=== PATIENT | male | born 1955 | race Caucasian/White ===

== ENCOUNTER → 2016-08-27 | Outpatient (CLI) | payer BC ==
--- NOTE | 2016-08-27 22:25 | CONS ---
DATE OF CONSULTATION: This 61-year-old gentleman has been evaluated in the sleep center for obstructive sleep apnea/hypopnea syndrome. HISTORY OF PRESENT ILLNESS/SLEEP-WAKE EVALUATION: Patient was diagnosed with obstructive sleep apnea/hypopnea syndrome in 2006. Since that time he has been on treatment with CPAP. He has continued to use CPAP equipment every night for the whole night. At present his sleep schedule on working days is from around 9 or 10 p.m. to 5 a.m.; on weekends from around 11 or 12 midnight until 10 or 11 a.m. Sometimes he has problems with falling asleep. He may grind his teeth and may have restless leg symptoms. He wakes up from sleep up to 7 times and once with nocturia. No TV in bedroom. He usually sleeps on the side position. No history of hypnagogic hallucinations, sleep paralysis or cataplexy. Patient feels sleepiness during the day. [employer] Sleepiness Scale is 10. Past medical history is positive for: 1. Back pain. 2. Hip problems. 3. Shoulder pain. 4. Sciatic nerve problems. 5. Fibromyalgia. 6. Acid reflux. 7. Hypertension. 8. 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 9. Back injury in 1993. PAST SURGICAL HISTORY: 1. Spinal stimulator insertion for pain in 2011. 2. Surgery on the neck for benign tumor. SOCIAL HISTORY: Positive for smoking about 1 pack a day for 40 years. Alcohol consumption: None. MEDICATIONS: 1. Gabapentin. 2. Percocet. 3. Lisinopril. 4. Cymbalta. 5. Morphine. 6. Cyclobenzaprine. 7. Nexium. 8. Vitamin D supplement. REVIEW OF SYSTEMS: Tiredness and sleepiness during the day, multiple awakenings from sleep. No fevers. No double vision. No recent chest pain. No shortness of breath. No abdominal pain. No bleeding episodes. No blood in urine. No seizure episodes. FAMILY HISTORY: Hypertension, fibromyalgia, cancer, acid reflux, restless legs. PHYSICAL EXAMINATION: GENERAL: A pleasant gentleman without distress. VITAL SIGNS: BP 126/80, HR 80, RR 16. Height 6 feet 0 inches. Weight 284. BMI 38.5. Neck 17-1/2 inches in circumference. Temperature 97.5. Oxygen saturation at room air 97%. HEENT: PERRLA, EOMI. Evaluation of oropharynx showed tongue protrudes midline; moderately low position of soft palate; restriction of nasal breathing bilaterally. NECK: Supple. No JVD. Thyroid is not palpable. LUNGS: Clear to percussion and to auscultation. Good air exchange. No wheezing or rhonchi. HEART: S1, S2 regular. No murmurs, gallops or rubs. ABDOMEN: Obese. EXTREMITIES: No clubbing or cyanosis. GROCERY STORE ASSOCIATE: Awake, alert, and oriented x3. Cranial nerves 2 to 7 intact. There is no fasciculation or atrophy noted. No focal deficits observed. Patient has difficulties with walking secondary to back pain. IMPRESSION: 1. Multiple awakenings from sleep, history of obstructive sleep apnea/hypopnea syndrome, [employer] Sleepiness Scale increased to 10. Patient continues to use his CPAP equipment every night but has symptoms of sleepiness during the day and multiple awakenings from sleep. 2. Back pain. 3. Hip pain. 4. Shoulder pain. 5. Sciatic nerve problem. 6. Status post spinal stimulator insertion. 7. Acid reflux. 8. Hypertension. 9. Fibromyalgia. 10. Status post back injury in 1983. 11. Status post benign tumor removed from the left side of the neck. PLAN: 1. Continue treatment with CPAP every night for the whole night. 2. Repeat CPAP titration for re-evaluation of effective CPAP pressure at the present time. Patient continues to have sleepiness during the day and awakenings from sleep. 3. Continue losing weight. 4. No driving if feeling any sleepiness. Thank you very much for referring this patient for re-evaluation. Sincerely, Manjit Quintero MD, PhD, FAASM. Diplomat of [employer] [place] [employer], Sleep Medicine Board by [employer] [place] [employer] [place] [employer] [place] Station Attendant of [facility] [place]
== END | disposition home or self-care (01) ==
CPT/HCPCS: 99211

== ENCOUNTER → 2016-11-05 | Outpatient (CLI) | payer BC ==
--- NOTE | 2016-11-05 23:37 | PN ---
61-year-old gentleman who has been followed in the sleep center for treatment of obstructive sleep apnea/hypopnea syndrome. Recently we did CPAP titration which showed that CPAP pressure of 12 cm is effective for the patient at the present time. Since that time, patient was started on new CPAP unit. I checked his CPAP unit today, it shows that patient using equipment 30 out of 30 nights for more than 4 hours, which means that 100% time. CPAP pressure is 12 cm of water, humidity at the level of 4. Leak from the mask is up to 20 L/min, which is acceptable. Apnea-hypopnea index reading from the machine is only 0.3 for the last month, which is perfect. [place] Sleepiness Scale today is 8. MEDICATIONS: 1. Gabapentin. 2. Percocet. 3. Lisinopril. 4. Cymbalta. 5. Morphine. 6. Cyclobenzaprine. 7. Nexium. 8. Vitamin D. VITAL SIGNS: BP 122/82, HR 80, RR 16. Weight 280. Temp 100.2. Oxygen saturation at room air 95%. HEENT: PERRLA, EOMI oropharynx low position of soft palate. Neck: Supple. No JVD. Thyroid is not palpable. LUNGS: Clear to percussion and to auscultation. Good air exchange. No wheezing or rhonchi. HEART: S1, S2 regular. No murmurs, gallops, or rubs. ABDOMEN: Obese. Soft and nontender. Bowel sounds are present. No organomegaly appreciated. EXTREMITIES: No clubbing or cyanosis. TECHNICIAN TRAINEE: Awake, alert, and oriented x3. Cranial nerves 2 to 7 intact. There is no fasciculation or atrophy noted. No focal deficits observed. IMPRESSION: 1. Obstructive sleep apnea/hypopnea syndrome on full control with CPAP at 12 cm of water. Patient demonstrated 100% compliance with treatment, benefiting from treatment. 2. Back pain. 3. Hip problems. 4. Shoulder pain. 5. Sciatic nerve problem. 6. Status post spinal stimulator insertion. 7. Hypertension. 8. Acid reflux. 9. Fibromyalgia. 10. Status post neck surgery. 11. Status post benign tumor removed from the left side of the neck. PLAN: 1. Continue treatment with CPAP at the pressure of 12 cm of water every night for the whole night. Patient showed 100% compliance benefiting from treatment. 2. Losing weight. 3. Sleep hygiene with regular time in bed for at least 8 hours. 4. No driving if feels any sleepiness. 5. Prescription for all necessary CPAP supplies. Thank you very much for allowing me to participate in the management your patient. Follow-up visit in ten months. Sincerely, Manjit Quintero MD, PhD, FAASM. Diplomat of [place] [employer], Sleep Medicine Board by [place] [employer] [place] [employer] Assistant Teaching Professor of [facility] [place]
== END | disposition home or self-care (01) ==
LOC: SLEEP 16:10
PROVIDERS: ATTEND Internal Medicine
DX: G47.33 Obstructive sleep apnea (adult) (pediatric) (principal); M54.9 Dorsalgia, unspecified; M25.519 Pain in unspecified shoulder; G58.9 Mononeuropathy, unspecified; Z96.89 Presence of other specified functional implants; I10 Essential (primary) hypertension; K21.9 Gastro-esophageal reflux disease without esophagitis; M79.7 Fibromyalgia; Z98.890 Other specified postprocedural states; Z79.899 Other long term (current) drug therapy

== ENCOUNTER → 2017-03-08 | Outpatient (CLI) | payer BC ==
--- NOTE | 2017-03-08 18:42 | CT ---
EXAMINATION TYPE: CT cervical spine wo con DATE OF EXAM: 03/08/2017 COMPARISON: 03/01/2014 HISTORY: Neck pain and right shoulder pain. Fall injury x3 months ago. CT DLP: 737.1 mGycm Automated exposure control for dose reduction was used. TECHNIQUE: CT scan of the cervical spine is obtained without contrast, axial images are obtained, sa gittal and coronal reformatted images are also reviewed. FINDINGS: Cervical vertebra have normal alignment. Disc spaces are fairly normal. There is anterior h ypertrophic spurring from C4 to C7. There is no compression fracture. The facet joints are intact. Sk ull base is intact. I see no focal bone destruction. IMPRESSION: There are mild spondylotic changes in the lower cervical spine. No fracture. No adverse c hange compared to old exam.
== END | disposition home or self-care (01) ==
LOC: RADCTMAIN 16:19
PROVIDERS: ATTEND Psychiatry & Neurology Neurology
DX: M47.812 Spondylosis without myelopathy or radiculopathy, cervical region (principal)
CPT/HCPCS: 72125

== ENCOUNTER → 2017-08-24 | Outpatient (CLI) | payer BC ==
--- NOTE | 2017-08-24 16:53 | CT ---
EXAMINATION TYPE: CT cervical spine wo con DATE OF EXAM: 08/24/2017 COMPARISON: NONE HISTORY: Neck pain radiating down right arm. CT DLP: 688.9 mGycm Automated exposure control for dose reduction was used. TECHNIQUE: CT scan of the cervical spine is obtained without contrast, axial images are obtained, sa gittal and coronal reformatted images are also reviewed. FINDINGS: Cervical vertebra have normal alignment. There is hypertrophic anterior spurring from C4 to T1. Posterior elements are intact. Skull base is intact. There is a relative spinal stenosis at C4-5 of 78 mm due to posterior endplate spur formation and probable disc herniation. There is similar myla nge at C5-6 and C6-7. IMPRESSION: Multilevel spondylosis. No fracture. No significant change compared to last exam.
== END | disposition home or self-care (01) ==
LOC: RADCTMAIN 16:04
PROVIDERS: ATTEND Psychiatry & Neurology Neurology
DX: M47.812 Spondylosis without myelopathy or radiculopathy, cervical region (principal)
CPT/HCPCS: 72125

== ENCOUNTER → 2017-11-11 | Outpatient (CLI) | payer BC ==
--- NOTE | 2017-11-11 17:07 | SFUN ---
SLEEP STUDY FOLLOW UP NOTE DATE OF SERVICE: 11/11/2017 62-year-old gentleman who has been followed in Sleep Center for treatment of obstructive sleep apnea-hypopnea syndrome. The patient successfully continued to use his CPAP equipment every night for the whole night without significant problems. No snoring with the machine. [place] Sleepiness Scale today is 5. I checked his CPAP unit. The patient used at 363nights/365 nights over the year and 349 nights it was more than 4 hours. Average usage is 7.3 hours. Leak is up to 20 L/minute. Apnea-hypopnea index reading for the whole year is 5.5. No significant changing of the weight since the last visit. MEDICATIONS: Gabapentin, lisinopril, Cymbalta, , Nexium, vitamin D. Presently, patient has pump for the pain inserted in June 2017. PHYSICAL EXAM: GENERAL Patient in no distress. VITAL SIGNS BP 106/68, HR 73, RR 14, height 6 foot 0, weight 279.0, BMI 37.8, temperature 98.1, oxygen saturation on room air 94%. HEENT PERRLA, EOMI, evaluation of oropharynx showed extremely low position of soft palate. NECK Supple, no JVD. Thyroid is not palpable. LUNGS Clear to percussion and to auscultation. Good air exchange. No wheezing or rhonchi. HEART S1, S2 regular. No murmurs, gallops, or rubs. ABDOMEN Obese. Soft and nontender. Bowel sounds are present. No organomegaly appreciated. EXTREMITIES No clubbing or cyanosis. TAX PROFESSIONAL Awake, alert, and oriented X3. Cranial nerves 2 to 7 intact. There is no fasciculation or atrophy. noted. No focal deficits observed. IMPRESSION: 1. Obstructive sleep apnea-hypopnea syndrome, most on control with CPAP with a pressure of 12 cm of water patient demonstrated 100% compliance with treatment, benefitting from treatment. 2. Back pain. 3. Hip problems. 4. Shoulder pain. 5. Sciatic nerve problems. 6. Status post spinal stimulator insertion. 7. Status post pain pump insertion June 2017. 8. Hypertension. 9. Acid reflux. 10.Fibromyalgia. 11.Status post neck surgery. 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 PLAN: 1. Continue treatment with CPAP every night for the whole night. 2. Losing weight. 3. Sleep hygiene with regular time in bed for at least 8 hours. 4. No driving if feeling sleepiness. 5. Prescription for all necessary CPAP supplies including mask, tube, filters. 6. Followup visit in 1 year or earlier if patient has any problems. Thank you very much for allowing me to participate in management of your patient. Sincerely, Manjit Quintero MD, PhD, FAASM Diplomat of [employer] [employer] Neuropsychology Director of [facility] [place] MMODL / IJN: [id number] /
== END | disposition home or self-care (01) ==
LOC: SLEEP 15:38
PROVIDERS: ATTEND Internal Medicine
DX: G47.33 Obstructive sleep apnea (adult) (pediatric) (principal); I10 Essential (primary) hypertension; K21.9 Gastro-esophageal reflux disease without esophagitis; M79.7 Fibromyalgia; M54.9 Dorsalgia, unspecified; M25.519 Pain in unspecified shoulder; Z98.890 Other specified postprocedural states; Z97.8 Presence of other specified devices; Z79.899 Other long term (current) drug therapy

== ENCOUNTER → 2018-08-03 | Outpatient (CLI) | payer BC | LOC: RADCTMAIN 16:15 | PROVIDERS: ATTEND Psychiatry & Neurology Neurology | DX: Z53.9 Procedure and treatment not carried out, unspecified reason (principal) ==

== ENCOUNTER → 2018-08-05 | Outpatient (CLI) | payer BC ==
--- NOTE | 2018-08-05 16:30 | CT ---
EXAMINATION TYPE: CT cervical spine wo con DATE OF EXAM: 08/05/2018 COMPARISON: CT cervical spine August 24, 2017. HISTORY: Patient has been having neck pain since cholecystectomy [address] DLP: 768 mGycm. Automated Exposure Control for Dose Reduction was Utilized. TECHNIQUE: CT scan of the cervical spine is obtained without contrast, axial images are obtained, sa gittal and coronal reformatted images are also reviewed. FINDINGS: Cervical spine is visualized in its entirety from C1 through upper thoracic levels, demonst rates satisfactory alignment without evidence of acute fracture or dislocation. Prevertebral soft ti ssue appears within normal limits. The C1-C2 articulation is within normal limits on the coronal keerthi ges. Vertebral body heights are maintained. There is mild disc space narrowing mid to lower cervical level s with moderate multilevel anterior spurring redemonstrated. Exam noted suboptimal due to patient's l arge body habitus. No new large posterior disc herniations are clearly present. Review of axial images redemonstrates posterior spur disc complex and uncovertebral facet degenerativ e changes with some effacement of the anterior thecal sac and asymmetric mild to moderate left greate r than right bilateral neural foraminal narrowing at C4-C5 level. Thyroid gland is felt within normal limits. Lung apices are clear. IMPRESSION: There is no acute fracture or dislocation evident in the cervical spine. Suboptimal stud y due to patient's body habitus. No significant change from prior CT. MRI is more sensitive to assess disc herniation and spinal canal effacement.
== END ==
LOC: RADCTMAIN 15:37
PROVIDERS: ATTEND Psychiatry & Neurology Pain Medicine
DX: M54.2 Cervicalgia (principal)
CPT/HCPCS: 72125

== ENCOUNTER → 2019-03-24 | Outpatient (CLI) | payer BC ==
[2019-03-24 14:03] LABS: Basophils # (A) 0.1 k/uL (0-0.2); Basophils % (A) 1 %; Eosinophils # (A) 0.2 k/uL (0-0.7); Eosinophils % (A) 2 %; HCT 45.6 % (39.0-53.0); HGB 15.4 gm/dL (13.0-17.5); Lymphocytes # (A) 3.8 k/uL (1.0-4.8); Lymphocytes % (A) 43 %; MCH 30.7 pg (25.0-35.0); MCHC 33.7 g/dL (31.0-37.0); MCV 91.3 fL (80.0-100.0); Mean Platelet Volume 6.6; Monocytes # (A) 0.7 k/uL (0-1.0); Monocytes % (A) 8 %; Neutrophils % (A) 44 %; Platelet Count 218 k/uL (150-450); RDW 12.9 % (11.5-15.5); WBC 8.9 k/uL (3.8-10.6)
[2019-03-24 19:00] LABS: African American GFR (CKD) 93.1 (60.0-200.0); Albumin 4.7 g/dL (3.80-4.90); Albumin/Globulin Ratio 2.47 (1.60-3.17); Anion Gap 6.7 mmol/L (4.00-12.00); Calcium 9.9 mg/dL (8.7-10.3); Carbon Dioxide 28.3 mmol/L (21.6-31.8); Globulin 1.9 g/dL (1.6-3.3); Potassium 4.5 mmol/L (3.5-5.5); Total Bilirubin 0.8 mg/dL (0.3-1.2); Total Protein 6.6 g/dL (6.2-8.2)
== END | disposition home or self-care (01) ==
LOC: LABWHC1 13:17
PROVIDERS: ATTEND Internal Medicine
DX: R11.2 Nausea with vomiting, unspecified (principal)
CPT/HCPCS: 36415; 80053; 82150; 83690; 83735; 85025

== ENCOUNTER → 2019-06-22 | Outpatient (CLI) | payer BC ==
[2019-06-22 14:24] LABS: INR 0.9 (<1.2); Prothrombin Time 9.6 sec (9.0-12.0)
[2019-06-22 14:41] LABS: HCT 45.2 % (39.0-53.0); HGB 15.7 gm/dL (13.0-17.5); MCH 32.2 pg (25.0-35.0); MCHC 34.8 g/dL (31.0-37.0); MCV 92.6 fL (80.0-100.0); Mean Platelet Volume 5.7; Platelet Count 246 k/uL (150-450); RBC 4.88 m/uL (4.30-5.90); RDW 12.4 % (11.5-15.5); WBC 7.1 k/uL (3.8-10.6)
[2019-06-22 20:26] LABS: % Iron Saturation 29.68 (15.00-50.00); Albumin 4.8 g/dL (3.80-4.90); Albumin/Globulin Ratio 2.4 (1.60-3.17); Bilirubin, Conjugated 0.3 mg/dL (0.20-0.40); Bilirubin,Unconjugated 0.8 mg/dL; Total Bilirubin 1.1 mg/dL (0.2-1.2); Total Protein 6.8 g/dL (6.2-8.2)
[2019-06-22 20:53] LABS: Hepatitis A Antibody IgM Non-Reactive (Non-Reactive); Hepatitis B Core IgM Non-Reactive (Non-Reactive); Hepatitis B Surface Antigen Non-Reactive (Non-Reactive); Hepatitis C IgG Antibody Non-Reactive (Non-Reactive)
[2019-06-23 11:56] LABS: Ceruloplasmin 25.3 mg/dL (20.0-60.0)
[2019-06-23 12:23] LABS: ANA Pattern Speckled
== END | disposition home or self-care (01) ==
LOC: LABWHC1 12:47
PROVIDERS: ATTEND Physician Assistant
DX: R94.5 Abnormal results of liver function studies (principal)
CPT/HCPCS: 36415; 80074; 80076; 82103; 82390; 83516; 83540; 83550; 85027; 85610; 86038; 86039

== ENCOUNTER → 2019-12-27 | Outpatient (CLI) | payer BC ==
[2019-12-27 18:39] LABS: Albumin 4.5 g/dL (3.80-4.90); Albumin/Globulin Ratio 2.25 (1.60-3.17); Bilirubin, Conjugated 0.3 mg/dL (0.20-0.40); Bilirubin,Unconjugated 0.5 mg/dL; Total Bilirubin 0.8 mg/dL (0.2-1.2); Total Protein 6.5 g/dL (6.2-8.2)
== END | disposition home or self-care (01) ==
LOC: LABWHC1 11:40
PROVIDERS: ATTEND Physician Assistant
DX: K76.0 Fatty (change of) liver, not elsewhere classified (principal)
CPT/HCPCS: 36415; 80076

== ENCOUNTER → 2020-09-04 | Outpatient (CLI) | payer BC ==
--- NOTE | 2020-09-04 20:22 | SFUN ---
SLEEP CENTER FOLLOW UP NOTE DATE OF SERVICE: 09/04/2020 This is a 65-year-old gentleman who has been followed in Sleep Center for treatment of obstructive sleep apnea-hypopnea syndrome. I did not see the patient for a little bit less than 3 years. During the previous visit, the patient used the machine on a regular basis and his apnea-hypopnea index reading from the machine was totally normal. It was 5.5. The patient continues to use his equipment every night and does not complain of any problems related to sleep or mask fitting. [place] Sleepiness Scale today is 7. I checked his CPAP machine. Pressure is 12 cm of water. Usage is 30/30 nights for more than 4 hours; average 7 hours per night. Leak is 38 L/minute, which is high. Apnea- hypopnea index reading for the last month is 50.3, which is extremely high. The patient's weight increased by around 20 pounds since his previous visit. The machine does not have options for automatic regulation of the pressure. MEDICATIONS: Gabapentin, lisinopril, Cymbalta, Nexium. PHYSICAL EXAMINATION: GENERAL: A pleasant patient in no distress. VITAL SIGNS: BP 108/74, HR 90, RR 12. Height 6 feet 1-1/4 inches, weight 301.4 pounds, temperature 98.5, oxygen saturation at room air 96%. HEENT: PERRLA, EOMI. Evaluation of oropharynx showed tongue protrudes midline. Extremely low position of soft palate. NECK: Supple. No JVD. Thyroid is not palpable. LUNGS: Clear to percussion and to auscultation. Good air exchange. No wheezing or rhonchi. HEART: S1, S2 regular. No murmurs, gallops or rubs. ABDOMEN: Obese. EXTREMITIES: No clubbing or cyanosis. WATCH ELECTRICIAN: Awake, alert, and oriented X3. Cranial nerves 2 to 7 intact. There is no fasciculation or atrophy. noted. No focal deficits observed. IMPRESSION: 1. Obstructive sleep apnea-hypopnea syndrome. Patient demonstrated good compliance with treatment but extremely high apnea-hypopnea index reading from the machine. 2. Obesity. Patient's weight increased by around 20 pounds since previous visit. 3. Back problems. 4. Hip problems. 5. Shoulder problems. 6. Sciatic nerve problems. 7. Status post spinal stimulator insertion. 8. Status post pain pump insertion. 9. Hypertension. 10.Acid reflux. 11.Fibromyalgia. 12.Status post neck surgery. 13.Status post benign tumor removed from the neck. PLAN: 1. I changed CPAP pressure from 12 to 15 cm of water. 2. I adjusted RAMP starting from 8 cm of water to the recommended pressure for 15 minutes. 3. Patient will continue to use PAP equipment every night for the whole night. 4. Sleep hygiene with regular time in bed for at least 7-1/2 to 8 hours. 5. Precautions related to driving. No driving if feeling sleepiness. 6. I will maintain all necessary prescription for PAP supplies including mask, tube, filters. 7. Watching weight. 8. No driving if feeling sleepiness. 9. Follow-up visit in 1-2 months or earlier if patient has any problems. Thank you very much for allowing me to participate in the management of your patient. Sincerely, Manjit Quintero MD, PhD, FAASM Diplomat of [employer] [employer] [employer] Livestock Rancher of [facility] [place] MMODL / BUFFYN: [id number] /
== END | disposition home or self-care (01) ==
LOC: SLEEP 14:33
PROVIDERS: ATTEND Internal Medicine
DX: G47.33 Obstructive sleep apnea (adult) (pediatric) (principal); E66.9 Obesity, unspecified; I10 Essential (primary) hypertension; K21.9 Gastro-esophageal reflux disease without esophagitis; M79.7 Fibromyalgia; M25.9 Joint disorder, unspecified; G57.00 Lesion of sciatic nerve, unspecified lower limb; Z99.89 Dependence on other enabling machines and devices; Z79.899 Other long term (current) drug therapy; Z98.890 Other specified postprocedural states

== ENCOUNTER → 2020-10-31 | Outpatient (CLI) | payer BC ==
--- NOTE | 2020-10-31 14:39 | SFUN ---
SLEEP CENTER FOLLOW UP NOTE DATE OF SERVICE: 10/31/2020 This 65-year-old gentleman had been followed in Sleep Center for treatment of obstructive sleep apnea-hypopnea syndrome. During the previous visit in August of 2020, apnea-hypopnea index was increased to 50.3 with the leaks 38 L/minute, and I changed the pressure in the CPAP unit empirically from 12 cm of water to 15 cm of water. Patient continues to use his CPAP equipment every night, tried different nasal pillow masks. Has sometimes awakenings from sleep. [place] Sleepiness Scale is 6. I checked his CPAP unit. CPAP pressure 15 cm of water. Usage is 30 out of 30 nights for more than 4 hours with average usage 7.1 hours per night. Leak is 53 L/minute, which is high. Apnea-hypopnea index is in extremely high range 56.8. During the last 2 weeks before visit. The patient used nasal pillow mask with chinstrap, and at that nights he used it every night again and averaged 6.8 hours per night. Leak was less 32 L/minute, but still high/ apnea-hypopnea index still in very high range 48.5. MEDICATIONS: Percocet 7.5/325, lisinopril 2.5 mg once a day, Cymbalta 60 mg once a day, Flexeril 10 mg, morphine by pain pump, Qvar 80 mcg 2 puffs, famotidine 20 mg, fluticasone 50 mcg 2 sprays to each nostril. PHYSICAL EXAMINATION: GENERAL: Patient in no distress. VITAL SIGNS: BP 138/82, HR 98, RR 18, height 6 feet 1 inch, weight 295, temperature 93.1, oxygen saturation at room air 96%. BMI 38.9. HEENT: PERRLA, EOMI. Oropharynx extremely low position of soft palate. Mallampati 4. NECK: Supple, no JVD. Thyroid is not palpable. LUNGS: Clear to percussion and to auscultation. Good air exchange. No wheezing or rhonchi. HEART: S1, S2 regular. No murmurs, gallops, or rubs. ABDOMEN: Obese. EXTREMITIES: No clubbing or cyanosis. SHIFT MANAGER: Awake, alert, and oriented X3. Cranial nerves 2 to 7 intact. There is no fasciculation or atrophy. noted. No focal deficits observed. IMPRESSION: 1. Obstructive sleep apnea-hypopnea syndrome. Patient demonstrated 100% compliance with treatment, but extremely high apnea-hypopnea index reading from the machine. The patient continued to wake up from sleep even after increasing pressure during the previous visit. 2. Patient is on morphine pump and on other several opioids which may increase risk for central sleep apneas. Reading from the machine does not indicate what type of breathing disorders the patient has, obstructive or centrals. 3. Obesity, body mass index 38.9. 4. Back problems. 5. Hip problems. 6. Shoulder problem. 7. Sciatic nerve problems. 8. Status post spinal stimulator insertion. 9. Status post pain pump insertion. 10.Hypertension. 11.Acid reflux. 12.Fibromyalgia. 13.Status post neck surgery. 14.Status post benign tumor removed from the neck. PLAN: 1. CPAP if necessary BiPAP if necessary BiPAP with ST mode titration with a goal also to find the best mask fit for the patient. Last titration was done many years ago. 2. Patient will continue to use PAP equipment every night for the whole night. 3. Sleep hygiene with regular time in bed for at least 7-1/2 to 8 hours. 4. Precautions related to driving. No driving if feeling sleepiness. 5. I will maintain all necessary prescription for PAP supplies including mask, tube, filters. 6. Watching weight. 7. Follow-up visit after reviewing results of the PAP titration. Sincerely, Manjit Quintero MD, PhD, FAASM Diplomat of [employer] [employer] Medicine Parts Classifier of [facility] [place] MMODL / IJN: [id number] /
== END ==
LOC: SLEEP 13:24
PROVIDERS: ATTEND Internal Medicine
DX: G47.33 Obstructive sleep apnea (adult) (pediatric) (principal); Z99.89 Dependence on other enabling machines and devices; E66.9 Obesity, unspecified; Z68.38 Body mass index [BMI] 38.0-38.9, adult; M54.9 Dorsalgia, unspecified; M25.559 Pain in unspecified hip; M25.519 Pain in unspecified shoulder; G57.00 Lesion of sciatic nerve, unspecified lower limb; I10 Essential (primary) hypertension; K21.9 Gastro-esophageal reflux disease without esophagitis; Z98.890 Other specified postprocedural states; M79.7 Fibromyalgia; Z96.82 Presence of neurostimulator; Z45.1 Encounter for adjustment and management of infusion pump

== ENCOUNTER → 2021-01-09 | Outpatient (CLI) | payer BC ==
--- NOTE | 2021-01-10 06:22 | SFUN ---
SLEEP CENTER FOLLOW UP NOTE DATE OF SERVICE: 01/09/2021 HISTORY OF PRESENT ILLNESS: This is a 65-year-old gentleman who has been followed in Sleep Center for treatment of obstructive and central sleep apnea-hypopnea syndrome. The patient is on treatment with BiPAP and uses equipment every night for the whole night. Still has some occasional awakenings from sleep and may feel sleepy during the day. [place] Sleepiness Scale is normal in the range of 6. I checked his BiPAP unit. Maximal inspiratory pressure 20, minimal expiratory pressure 12, pressure support 4. Usage is 30/30 nights for more than 4 hours. Leak is 29 L/minute. Apnea-hypopnea index significantly increased to 27.8, and central apnea index 12.4. Average pressure is 19.5/15.5. CURRENT MEDICATIONS: Percocet, lisinopril, Cymbalta, Flexeril, morphine pump, Qvar, famotidine, fluticasone. PHYSICAL EXAMINATION: GENERAL: Patient in no distress. VITAL SIGNS: BP 120/77, HR around 100, RR 16, weight 292.2, temp 95.3, oxygen saturation at room air 96%. HEENT: PERRLA, EOMI, evaluation of oropharynx showed tongue protrudes midline. Moderately low position of soft palate. NECK: Supple, no JVD. Thyroid is not palpable. LUNGS: Clear to percussion and to auscultation. Good air exchange. No wheezing or rhonchi. HEART: S1, S2 regular. No murmurs, gallops, or rubs. ABDOMEN: Soft and nontender. Bowel sounds are present. No organomegaly appreciated. Obese. EXTREMITIES: No clubbing or cyanosis. TUBER MACHINE OPERATOR: Awake, alert, and oriented X3. Cranial nerves 2 to 7 intact. There is no fasciculation or atrophy. noted. No focal deficits observed. IMPRESSION: 1. Obstructive and central sleep apnea-hypopnea syndrome. The patient demonstrated 100% compliance with treatment, benefitting from treatment, but apnea-hypopnea index increased and does include obstructive apneas and central apneas. 2. Obesity. 3. Back pain. 4. Hip pain. 5. Shoulder pain. 6. Sciatic nerve problems. 7. Status post spinal stimulator insertion. 8. Acid reflux. 9. Hypertension. 10.Fibromyalgia. 11.Status post back injury in 1993. 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 13.Patient is on morphine pump. PLAN: 1. Continue treatment with BiPAP. I increased maximal inspiratory pressure to 24 cm of water. 2. Aggressive losing weight program. 3. Sleep hygiene with regular time in bed for at least 8 hours. 4. Precautions related to driving. No driving if feeling any sleepiness. 5. Follow-up visit in several months to evaluate clinical response on changing BiPAP regimen. Thank you very much for allowing me to participate in management of your patient. Sincerely, Manjit Quintero MD, PhD, FAASM Diplomat of [employer] [employer] [employer] Medicine Abstract Writer of [facility] [place] MMODL / IJN: [id number] /
== END ==
LOC: SLEEP 14:03
PROVIDERS: ATTEND Internal Medicine
DX: G47.33 Obstructive sleep apnea (adult) (pediatric) (principal); E66.9 Obesity, unspecified; M25.519 Pain in unspecified shoulder; M54.30 Sciatica, unspecified side; K21.9 Gastro-esophageal reflux disease without esophagitis; I10 Essential (primary) hypertension; M79.7 Fibromyalgia; Z98.890 Other specified postprocedural states; Z96.82 Presence of neurostimulator; Z79.891 Long term (current) use of opiate analgesic; Z99.81 Dependence on supplemental oxygen; Z79.899 Other long term (current) drug therapy
CPT/HCPCS: 99211

== ENCOUNTER → 2021-03-27 | Outpatient (CLI) | payer BC ==
--- NOTE | 2021-03-27 22:21 | SFUN ---
SLEEP CENTER FOLLOW UP NOTE DATE OF SERVICE: 03/27/2021 This 66-year-old gentleman has been followed in Sleep Center for treatment of obstructive sleep apnea-hypopnea syndrome. During his previous visit, because apnea- hypopnea index was increased to 27.8, which is significantly high, with central apnea index 12.4, with maximal inspiratory pressure 20 and minimal expiratory pressure 12, I increased his maximal inspiratory pressure to 24. Today is the patient's visit following his use of the machine with increased pressure. The patient continues to use equipment every night, but for the last several months he started to feel not so good as before. He started to feel more sleepiness. [place] Sleepiness Scale today, though, is 3. I checked his BiPAP unit. Maximal inspiratory pressure is 24, minimal expiratory pressure 12, average pressure 19.2 or 15.2. Apnea-hypopnea index is high at 29.4, and that includes central apnea-hypopnea index of 5.6. Leak is higher than during the previous visit, 78 L/minute for the last month. For 3 months, apnea-hypopnea index 22 and leak is less, 60 L/minute. Several days ago the patient was started on treatment with nasal pillow mask with a chin strap, and leak increased up to 115 L/minute for the last several days. MEDICATIONS: 1. Meclizine. 2. Atorvastatin 40 mg once a day. 3. Keppra 1000 mg twice a day. 4. Percocet 7.5/325 on a p.r.n. basis. 5. Cymbalta 60 mg once a day. 6. Flexeril 10 mg once a day. 7. Nexium 22.3 mg once a day. 8. Morphine pain pump. 9. Qvar 80 mcg two puffs twice a day. 10.Famotidine 20 mg once a day. 11.Fluticasone 50 mcg spray, two sprays in each nostril daily. 12.Vitamin D supplement. PHYSICAL EXAMINATION: GENERAL: Pleasant patient in no distress. VITAL SIGNS: BP 147/83, HR 90, RR 15, height 6 feet 0 inches, weight 283 pounds, BMI 38.8, temperature 97.6, oxygen saturation at room air 95%. HEENT: PERRLA, EOMI, evaluation of oropharynx showed tongue protrudes midline. Moderately low position of soft palate. NECK: Supple, no JVD. Thyroid is not palpable. LUNGS: Clear to percussion and to auscultation. Good air exchange. No wheezing or rhonchi. HEART: S1, S2 regular. No murmurs, gallops, or rubs. ABDOMEN: Obese. EXTREMITIES: No clubbing or cyanosis. ELEVATORS INSPECTOR: Awake, alert, and oriented X3. Cranial nerves 2 to 7 intact. There is no fasciculation or atrophy. noted. No focal deficits observed. IMPRESSION: 1. Obstructive and central sleep apnea-hypopnea syndrome. The patient demonstrated good compliance with treatment. Significantly increased apnea-hypopnea index while using the machine. High leak from the mask. 2. Obesity. 3. Back pain. 4. Status post spinal stimulator insertion, morphine pain pump. Opioids increase risk for central apneas; possibly partially apnea-hypopnea index increased because of that. 5. Hip pain. 6. Shoulder pain. 7. Sciatic nerve problems. 8. Acid reflux. 9. Hypertension. 10.Fibromyalgia. 11.Status post back injury in 1993. 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 PLAN: 1. Prescription for hybrid full-face mask which includes nasal pillows and covered mouth. 2. Continue to use BiPAP equipment every night. 3. Losing weight. 4. Sleep hygiene with regular time in bed for at least 7-1/2 to 8 hours. 5. Precautions related to driving. No driving if feeling sleepiness. 6. I will maintain all necessary prescription for PAP supplies including mask, tube, filters. 7. Follow-up visit in 2 months or earlier if patient has any problems. If no improvements, we will have to proceed with a sleep study for correction of respiratory abnormalities during sleep, possibly using a BiPAP ST mode machine for correction of central sleep apneas. Thank you very much for allowing me to participate in the management of your patient. Sincerely, Manjit Quintero MD, PhD, FAASM Diplomat of [employer] Sleep Medicine Board of [employer] Stroke Coordinator of [facility] [place] NEGAR / LEIGH ANN: [id number] /
== END | disposition home or self-care (01) ==
LOC: SLEEP 13:48
PROVIDERS: ATTEND Internal Medicine
DX: G47.33 Obstructive sleep apnea (adult) (pediatric) (principal); E66.9 Obesity, unspecified; M25.519 Pain in unspecified shoulder; K21.9 Gastro-esophageal reflux disease without esophagitis; M54.30 Sciatica, unspecified side; I10 Essential (primary) hypertension; M79.7 Fibromyalgia; Z98.890 Other specified postprocedural states; Z87.828 Personal history of other (healed) physical injury and trauma; Z99.89 Dependence on other enabling machines and devices; Z96.82 Presence of neurostimulator; Z68.38 Body mass index [BMI] 38.0-38.9, adult; Z79.899 Other long term (current) drug therapy; Z79.891 Long term (current) use of opiate analgesic

== ENCOUNTER → 2021-07-23 | Outpatient (CLI) | payer BC, MEDICARE ==
--- NOTE | 2021-07-23 23:16 | SFUN ---
SLEEP CENTER FOLLOW UP NOTE DATE OF SERVICE: 07/23/2021 This 66-year-old gentleman has been followed in Sleep Center for treatment of obstructive sleep apnea-hypopnea syndrome. The patient continues to use his CPAP equipment every night but still has problems with the mask. When he opens his mouth, the mask goes out during the night. [place] Sleepiness Scale is normal at 4. I checked his BiPAP unit. Maximal inspiratory pressure 24, minimal expiratory pressure 12, average pressure is 18.5/14.4, so the range of the pressure is enough for the patient. Usage is 30/30 nights and 27/30 nights for more than 4 hours, average 6.5 hours per night. Leak is very high at 82 L/minute. Apnea-hypopnea index increased to 32.8. MEDICATIONS: 1. Keppra 1000 mg twice a day. 2. Cymbalta 60 mg once a day. 3. Flexeril 10 mg two tablets at bedtime. 4. Nexium 22.3 mg once a day. 5. Famotidine 20 mg once a day. 6. Fluticasone 50 mcg spray to the nostrils. PHYSICAL EXAMINATION: GENERAL: Pleasant patient in no distress. VITAL SIGNS: BP 134/79, HR 80, RR 15, height 6 feet 1 inch, weight 198.4 pounds, body mass index 39.3, temperature 97.1, oxygen saturation at room air 96%. HEENT: PERRLA, EOMI, evaluation of oropharynx showed tongue protrudes midline. Moderately low position of soft palate. NECK: Supple, no JVD. Thyroid is not palpable. LUNGS: Clear to percussion and to auscultation. Good air exchange. No wheezing or rhonchi. HEART: S1, S2 regular. No murmurs, gallops, or rubs. ABDOMEN: Soft and nontender. Bowel sounds are present. No organomegaly appreciated. EXTREMITIES: No clubbing or cyanosis. KEYMODULE ASSEMBLY SUPERVISOR: Awake, alert, and oriented X3. Cranial nerves 2 to 7 intact. There is no fasciculation or atrophy. noted. No focal deficits observed. IMPRESSION: 1. Obstructive sleep apnea-hypopnea syndrome. Patient demonstrated good compliance with treatment. Significant leak from the mask. Apnea-hypopnea index increased. 2. Obesity. 3. Back problems. 4. Status post spinal stimulator insertion, morphine pain pump, which may increase risk for central sleep apneas. 5. Hip pain. 6. Shoulder pain. 7. Sciatic nerve problems. 8. Acid reflux. 9. Hypertension. 10.Fibromyalgia. 11.Status post back injury in 1993. 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 PLAN: 1. The patient has been fitted with a DreamWear large full-face mask and he likes this mask. Prescription was written also for chin strap. 2. Patient will continue to use PAP equipment every night for the whole night. 3. Sleep hygiene with regular time in bed for at least 7-1/2 to 8 hours. 4. Precautions related to driving. No driving if feeling sleepiness. 5. I will maintain all necessary prescription for PAP supplies including mask, tube, filters. 6. Watching weight. 7. Follow-up visit in 3 months or earlier if patient has any problems. Thank you very much for allowing me to participate in the management of your patient. Sincerely, Manjit Quintero MD, PhD, FAASM Diplomat of [employer] Sleep Medicine Board of [employer] Supervisor [employer] [facility] [place] MMODL / BUFFYN: [id number] /
== END ==
LOC: SLEEP 13:35
PROVIDERS: ATTEND Internal Medicine
DX: G47.33 Obstructive sleep apnea (adult) (pediatric) (principal); E66.9 Obesity, unspecified; M53.80 Other specified dorsopathies, site unspecified; M25.519 Pain in unspecified shoulder; M25.559 Pain in unspecified hip; K21.9 Gastro-esophageal reflux disease without esophagitis; M54.30 Sciatica, unspecified side; I10 Essential (primary) hypertension; M79.7 Fibromyalgia; Z96.82 Presence of neurostimulator; Z68.39 Body mass index [BMI] 39.0-39.9, adult; Z99.89 Dependence on other enabling machines and devices; Z97.8 Presence of other specified devices; Z98.890 Other specified postprocedural states

== ENCOUNTER → 2021-12-04 | Outpatient (CLI) | payer MEDICARE ==
--- NOTE | 2021-12-04 15:13 | SFUN ---
SLEEP CENTER FOLLOW UP NOTE DATE OF SERVICE: 12/04/2021 This 66-year-old gentleman has been followed in Sleep Center for treatment of obstructive sleep apnea-hypopnea syndrome. The patient continues to use his CPAP equipment every night but still has some problems related to the machine. [place] Sleepiness Scale today is 6. I checked his BiPAP unit. Maximal inspiratory pressure is 24, minimal expiratory pressure 12, average pressure 19.8/15.8. Pressure support is 4. Usage is 30/30 nights and 28/30 nights for more than 4 hours, average 6.5 hours per night, which indicates great compliance, but leak is high at 70 L/minute average, and apnea-hypopnea index for the last night is 60; for the last month 37.0, which is in very high range. CURRENT MEDICATIONS: 1. Atorvastatin 40 mg once a day. 2. Duloxetine 60 mg once a day. 3. Metformin 500 mg two tablets twice a day. 4. 1000 mg twice a day. 5. Cyclobenzaprine 10 mg once a day. 6. Morphine pain pump. 7. Fluticasone spray. 8. Meclizine 25 mg as needed. 9. Omeprazole 20 mg twice a day. PHYSICAL EXAMINATION: GENERAL APPEARANCE: Pleasant gentleman without distress. VITAL SIGNS: BP 120/80, HR around 100, RR 18, temperature 97.0, oxygen saturation at room air 96%. HEENT: PERRLA, EOMI, evaluation of oropharynx showed tongue protrudes midline. Moderately low position of soft palate. NECK: Supple, no JVD. Thyroid is not palpable. LUNGS: Clear to percussion and to auscultation. Good air exchange. No wheezing or rhonchi. HEART: S1, S2 regular. No murmurs, gallops, or rubs. ABDOMEN: Obese. EXTREMITIES: No clubbing or cyanosis. POLISHING MACHINE TENDER: Awake, alert, and oriented X3. Cranial nerves 2 to 7 intact. There is no fasciculation or atrophy. noted. No focal deficits observed. IMPRESSION: 1. Obstructive sleep apnea-hypopnea syndrome. Patient demonstrated 100% compliance with treatment, but apnea-hypopnea reading from the machine is in extremely high range. Significant leak from the mask. 2. Obesity. 3. Back problems. 4. Status post spinal stimulator insertion. 5. Morphine pain pump, which may increase risk for central sleep apneas. 6. Hip pain. 7. Shoulder pain. 8. Sciatic nerve problems. 9. Acid reflux. 10.Hypertension. 11.Fibromyalgia. 12.Status post back injury in 1993. 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 PLAN: 1. BiPAP titration for correction of respiratory abnormalities during sleep and proper fitting of patient with the mask; currently on BiPAP the patient continues to have extremely high abnormalities of respiration. 2. Patient will continue to use PAP equipment every night for the whole night. 3. Sleep hygiene with regular time in bed for at least 7-1/2 to 8 hours. 4. Precautions related to driving. No driving if feeling sleepiness. 5. I will maintain all necessary prescription for PAP supplies including mask, tube, filters. 6. Watching weight. 7. Follow-up visit in 3 months or earlier if patient has any problems. Thank you very much for allowing me to participate in the management of your patient. Sincerely, Manjit Quintero MD, PhD, FAASM Diplomat of [employer] Sleep Medicine Board of [employer] Equipment Application Specialist of [facility] [place] MMODL / IJN: [id number] /
== END ==
LOC: SLEEP 14:06
PROVIDERS: ATTEND Internal Medicine
DX: G47.33 Obstructive sleep apnea (adult) (pediatric) (principal); E66.9 Obesity, unspecified; M53.80 Other specified dorsopathies, site unspecified; M25.559 Pain in unspecified hip; M25.519 Pain in unspecified shoulder; K21.9 Gastro-esophageal reflux disease without esophagitis; I10 Essential (primary) hypertension; M79.7 Fibromyalgia; M54.30 Sciatica, unspecified side; Z96.82 Presence of neurostimulator; Z97.8 Presence of other specified devices; Z86.018 Personal history of other benign neoplasm; Z87.828 Personal history of other (healed) physical injury and trauma; Z98.890 Other specified postprocedural states; Z99.89 Dependence on other enabling machines and devices

== ENCOUNTER → 2022-02-24 | Outpatient (CLI) | payer MEDICARE ==
[2022-02-24 22:36] LABS: Basophils # (A) 0.06 X 10*3/uL (0.00-0.10); Basophils % (A) 0.8 %; Eosinophils # (A) 0.22 X 10*3/uL (0.04-0.35); Eosinophils % (A) 2.8 %; HCT 43.2 % (39.6-50.0); Immature Grans, Automated 0.3 %; Lymphocytes # (A) 2.46 X 10*3/uL (0.90-5.00); Lymphocytes % (A) 31.1 %; MCH 29.8 pg (27.0-32.0); MCHC 32.4 g/dL (32.0-37.0); MCV 91.9 fL (80.0-97.0); Mean Platelet Volume 9.9 fL (9.5-12.2); Monocytes # (A) 0.69 X 10*3/uL (0.20-1.00); Monocytes % (A) 8.7 %; NRBC Per 100 WBC 0 /100 WBCS (0.0-0.0); Neutrophils # (A) 4.47 X 10*3/uL (1.80-7.70); Neutrophils % (A) 56.3 %; Platelet Count 232 X 10*3/uL (140-440); RDW 12.9 % (11.5-14.5); WBC 7.92 X 10*3/uL (4.50-10.00)
[2022-02-24 22:46] LABS: African American GFR (CKD) 103.5 (60.0-200.0); Albumin 4.6 g/dL (3.8-4.9); Albumin/Globulin Ratio 1.7 (1.60-3.17); Anion Gap 11.8 mmol/L (10.00-18.00); Blood Urea Nitrogen 13.5 mg/dL (9.0-27.0); Calcium 9.6 mg/dL (8.7-10.3); Carbon Dioxide 24.2 mmol/L (20.0-27.5); Globulin 2.7 g/dL (1.6-3.3); Non-African American GFR(CKD) 89.3 (60.0-200.0); Potassium 4.2 mmol/L (3.5-5.5); Total Bilirubin 0.8 mg/dL (0.30-1.20); Total Protein 7.3 g/dL (6.2-8.2)
== END | disposition home or self-care (01) ==
LOC: LABWHC1 15:00
PROVIDERS: ATTEND Nurse Practitioner Family
DX: K76.0 Fatty (change of) liver, not elsewhere classified (principal)
CPT/HCPCS: 36415; 80053; 85025

== ENCOUNTER → 2024-10-12 | Outpatient (CLI) | payer MEDICARE ==
--- NOTE | 2024-10-12 12:30 | CT ---
EXAMINATION TYPE: CT brain w con CT DLP: 1012.7 mGycm, Automated exposure control for dose reduction was used. DATE OF EXAM: 10/12/2024 12:18 PM COMPARISON: None. CLINICAL INDICATION:Male, 69 years old with history of R42 dizziness; PHH, dizziness TECHNIQUE: Axial CT images of the brain were obtained after the uneventful administration 100 mL of I sovue-370 intravenously. One or more CT dose reduction strategies were utilized during this examinati on. Coronal and sagittal reformats reviewed. FINDINGS: Extra-axial spaces: No abnormal extra-axial fluid collections. Ventricular system: Within normal limits Cerebral parenchyma: No acute intraparenchymal hemorrhage or mass effect. The teran-white junction is well differentiated. No abnormal enhancement is seen after the administration of intravenous contras t. Cerebellum: Unremarkable. Mass effect: No evidence of midline shift. Intracranial vasculature: Atherosclerotic calcifications of the intracranial vessels. Soft tissues: Normal. Calvarium/osseous structures: No depressed skull fracture. Paranasal sinuses and mastoid air cells: The mastoid air cells are clear. Mild mucosal thickening of the ethmoid sinuses. The frontal sinuses and visualized maxillary sinuses are clear. The left sphenoi d sinus is clear. Probable mucous retention cyst measuring 1.6 cm within the right sphenoid sinus. Visualized orbits: Bilateral aphakia IMPRESSION: 1. No acute intracranial process and no evidence to suggest intracranial mass. 2. Mild paranasal sinus disease. [facility], , 10/12/2024 12:27 PM
--- NOTE | 2024-10-12 12:45 | CT ---
EXAMINATION TYPE: CT abdomen wo/w con CT DLP: 3063.3 mGycm, Automated exposure control for dose reduction was used. DATE OF EXAM: 10/12/2024 12:18 PM COMPARISON: None CLINICAL INDICATION:Male, 69 years old with history of K85.00 pancreatitis; Pancreatitis TECHNIQUE: Standard CT of the abdomen before and after the uneventful administration 100 mL Isovue 300 intravenously. Delayed imaging was obtained. Oral contrast was administered. Coronal and sagittal reformats were performed. FINDINGS: LOWER CHEST: The visualized lungs are clear. Small coronary artery calcifications. ABDOMEN LIVER: Unremarkable GALLBLADDER AND BILE DUCTS: The gallbladder is surgically absent. No biliary ductal dilatation. PANCREAS: Unremarkable. No pancreatic ductal dilatation or parenchymal calcifications. No surrounding fat stranding or lesion identified. No organized fluid collections. SPLEEN: Unremarkable. ADRENAL GLANDS: Unremarkable. KIDNEYS AND URETERS: No evidence of hydronephrosis or renal calculus. The kidneys enhance symmetrical ly. Contrast is demonstrated within both collecting systems on the delayed phase. Left renal cortical 2.0 cm cyst. Minimal nonspecific bilateral perinephric fat stranding. STOMACH AND BOWEL: Stomach and duodenum are unremarkable. Enteric contrast reaches the mid small margarita l. No focal bowel wall thickening or surrounding inflammatory changes. The appendix is within normal limits. No evidence of bowel obstruction. PERITONEUM: No evidence of pneumoperitoneum or free fluid. VASCULATURE: Moderate atherosclerotic calcifications are present throughout the abdominal aorta and i ts branches. Infrarenal mid to distal abdominal fusiform abdominal aortic aneurysm measuring up to 3. 8 cm. The bilateral renal arteries, celiac axis, and SMA are widely patent. The AR appears patent. MUSCULOSKELETAL: No acute osseous abnormalities. Degenerative changes of the pubic symphysis. Multile radha degenerative disc disease. Prominent posterior osteophyte at L2-L3. LYMPH NODES: No gross evidence for lymphadenopathy. SOFT TISSUE/ABDOMINAL WALL: Left lower back powerpack device with lead entering the spinal canal at t he L2-L3 interspinous space. Additional lead entering the spinal canal at the T9-T10 interspinous spa ce. Additional metallic device identified within the left anterior abdominal wall subcutaneous tissue s. IMPRESSION: 1. No CT evidence for acute abdominal process. No evidence for pancreatitis. 2. Infrarenal abdominal aortic aneurysm measuring up to 3.8 cm. [facility], , 10/12/2024 12:43 PM
== END | disposition home or self-care (01) ==
LOC: RADCTMAIN 11:10
PROVIDERS: ATTEND Family Medicine
DX: I71.43 Infrarenal abdominal aortic aneurysm, without rupture (principal); R42 Dizziness and giddiness; R41.9 Unspecified symptoms and signs involving cognitive functions and awareness; K85.00 Idiopathic acute pancreatitis without necrosis or infection; J34.89 Other specified disorders of nose and nasal sinuses
CPT/HCPCS: 70460; 74170; Q9967